=== PATIENT | female | born 1960 ===

== ENCOUNTER 2017-11-27 07:27 | Emergency (ER) | payer OTHER ==
[~2017-11-27] VITALS: Ht 160 cm; Wt 62.6 kg
[2017-11-27] MEDS ORDERED: METFORMIN HCL500 MG (07:47)
[2017-11-27] MEDS ORDERED: GLIPIZIDE5 MG (07:47)
[2017-11-27] MEDS ORDERED: LEVOTHYROXINE25 MCG (07:48)
== END 2017-11-27 09:56 | disposition home or self-care (01) ==
LOC: ER 07:27
DX: S20.212A Contusion of left front wall of thorax, initial encounter (principal); S20.211A Contusion of right front wall of thorax, initial encounter; W18.39XA Other fall on same level, initial encounter; Y93.89 Activity, other specified; Y92.098 Other place in other non-institutional residence as the place of occurrence of the external cause; Y99.8 Other external cause status

== ENCOUNTER 2021-02-06 09:19 | Emergency (ER) | payer OTHER ==
[~2021-02-06] VITALS: Ht 157.5 cm; Wt 58.1 kg
[~2021-02-06 09:19] MED LIST: GLIPIZIDE5 MG; LEVOTHYROXINE25 MCG; METFORMIN HCL500 MG
== END 2021-02-06 11:19 | disposition home or self-care (01) ==
LOC: ER 09:19
DX: S50.812A Abrasion of left forearm, initial encounter (principal); W55.01XA Bitten by cat, initial encounter; Y93.89 Activity, other specified; Y92.89 Other specified places as the place of occurrence of the external cause; Y99.8 Other external cause status